=== PATIENT | male | born 1945 | race Asian ===

== ENCOUNTER 2016-08-07 15:44 | Outpatient (CLI) | payer OTHER ==
[2016-08-07] MEDS ORDERED: CLARITIN RDT5 MG OR (16:25)
[2016-08-07] MEDS ORDERED: RISP1TAB PO (16:26)
[2016-08-07] MEDS ORDERED: CARAFATE1 GM PO (16:26)
[2016-08-07] MEDS ORDERED: POTASSIUM25 MEQ OR (16:27)
[2016-08-07] MEDS ORDERED: LISI5TAB10 PO (16:28)
[2016-08-07] MEDS ORDERED: FELO10TA OR (16:28)
[2016-08-07] MEDS ORDERED: SIMV20TA2 PO (16:29)
[2016-08-07] MEDS ORDERED: HYDRALAZINE100 MG PO (16:29)
[2016-08-07] MEDS ORDERED: METOPROLOL25 M1 OR (16:30)
[2016-08-07] MEDS ORDERED: METO10IN2 INJ (16:30)
[2016-08-07] MEDS ORDERED: PANT40IN IV (16:30)
[2016-08-07] MEDS ORDERED: M2 MAGNESIUM100 MG OR (16:31)
[2016-08-07] MEDS ORDERED: JANTOVEN5 MG OR (16:31)
== END 2016-08-07 15:50 | disposition short-term general hospital (02) ==
LOC: AMB 15:44
DX: R41.82 Altered mental status, unspecified (principal)
CPT/HCPCS: A0425; A0427

== ENCOUNTER 2016-08-07 15:58 | Emergency (ER) | payer OTHER ==
[~2016-08-07] VITALS: Ht 170.2 cm; Wt 68.0 kg
[2016-08-07 15:55] VITALS: TEMP 100
[2016-08-07] MEDS ORDERED: CLARITIN RDT5 MG OR (16:25)
[2016-08-07] MEDS ORDERED: CARAFATE1 GM PO (16:26)
[2016-08-07] MEDS ORDERED: RISP1TAB PO (16:26)
[2016-08-07] MEDS ORDERED: POTASSIUM25 MEQ OR (16:27)
[2016-08-07] MEDS ORDERED: FELO10TA OR (16:28)
[2016-08-07] MEDS ORDERED: LISI5TAB10 PO (16:28)
[2016-08-07 16:29] LABS: PLATELET COUNT 265 K/uL (142-355)
[2016-08-07] MEDS ORDERED: HYDRALAZINE100 MG PO (16:29)
[2016-08-07] MEDS ORDERED: SIMV20TA2 PO (16:29)
[2016-08-07] MEDS ORDERED: METO10IN2 INJ (16:30)
[2016-08-07] MEDS ORDERED: METOPROLOL25 M1 OR (16:30)
[2016-08-07] MEDS ORDERED: PANT40IN IV (16:30)
[2016-08-07] MEDS ORDERED: M2 MAGNESIUM100 MG OR (16:31)
[2016-08-07] MEDS ORDERED: JANTOVEN5 MG OR (16:31)
[2016-08-07 16:44] LABS: POTASSIUM 4.6 mmol/L (3.6-5.2)
[2016-08-07 19:15] VITALS: BP 117/63
== END 2016-08-07 19:26 | disposition short-term general hospital (02) ==
LOC: ED 15:58
DX: G45.8 Other transient cerebral ischemic attacks and related syndromes (principal); G31.89 Other specified degenerative diseases of nervous system; N18.9 Chronic kidney disease, unspecified; I21.4 Non-ST elevation (NSTEMI) myocardial infarction; E87.1 Hypo-osmolality and hyponatremia
CPT/HCPCS: 36415; 51702; 80053; 80307; 81000; 84484; 85027; 93005; 96365; 99285; G0479; J1644

== ENCOUNTER 2016-08-07 19:37 | Outpatient (CLI) | payer OTHER ==
[~2016-08-07 19:37] MED LIST: CARAFATE1 GM PO; CLARITIN RDT5 MG OR; FELO10TA OR; HYDRALAZINE100 MG PO; JANTOVEN5 MG OR; LISI5TAB10 PO; M2 MAGNESIUM100 MG OR; METO10IN2 INJ; METOPROLOL25 M1 OR; PANT40IN IV; POTASSIUM25 MEQ OR; RISP1TAB PO; SIMV20TA2 PO
== END 2016-08-07 20:09 | disposition short-term general hospital (02) ==
LOC: AMB 19:37
DX: G45.8 Other transient cerebral ischemic attacks and related syndromes (principal); G31.89 Other specified degenerative diseases of nervous system; N18.9 Chronic kidney disease, unspecified; I21.4 Non-ST elevation (NSTEMI) myocardial infarction; E87.1 Hypo-osmolality and hyponatremia
CPT/HCPCS: A0425; A0427